=== PATIENT | male | born 1980 | race Caucasian/White ===

== ENCOUNTER 2018-11-02 17:20 | Emergency (ER) | payer OTHER ==
[2018-11-02 17:27] VITALS: BP 157/85
--- NOTE | 2018-11-02 18:05 | ED Physician Documentation ---
PD HPI HEENT - Stated complaint Stated Complaint: THROAT SWELLING - Chief complaint Chief Complaint: Heent - History obtained from History obtained from: Patient - History of Present Illness Timing - onset: How many days ago (few) Timing - duration: Days (few) Timing - details: Gradual onset, Still present Location: Throat. No: Right ear, Left ear, Sinuses, Nose Worsens: Swalllowing Associated symptoms: Fever, Other (tonsil pain and feeling swelling without URI symptoms.). No: Congestion, Rhinorrhea Similar symptoms before: Has not had sx before Recently seen: Clinic (went to Urgent Care on [facility] yesterday and had rapid strep negative and Rx with viscous lido. Feeling worse today.) Review of Systems Constitutional: reports: Fever, Myalgias Nose: denies: Rhinorrhea / runny nose, Congestion Throat: reports: Sore throat Respiratory: denies: Cough GI: denies: Nausea, Vomiting, Diarrhea Musculoskeletal: denies: Joint pain Neurologic: denies: Near syncope PD PAST MEDICAL HISTORY - Past Medical History Cardiovascular: None Respiratory: None Neuro: None Endocrine/Autoimmune: None - Past Surgical History Past Surgical History: Yes - Present Medications Home Medications: Ambulatory Orders Medication Instructions Recorded Confirmed Cephalexin [Keflex] 500 mg PO TID #20 capsule 11/02/18 Hydrocodone/Acetaminophen [[place] 1 each PO Q6H PRN #12 tablet 11/02/18 5-325 Tablet] dexAMETHasone [Decadron] 4 mg PO DAILY #5 tablet 11/02/18 - Allergies Allergies/Adverse Reactions: Allergies Allergy/AdvReac Type Severity Reaction Status Date / Time Penicillins Allergy Unknown Verified 11/02/18 17:26 - Social History Does the pt smoke?: No Smoking Status: Never smoker Does the pt drink ETOH?: Yes ETOH Use: Wine, Beer PD ED PE NORMAL - Vitals Vital signs reviewed: Yes - General General: Alert and oriented X 3, Well developed/nourished, Other (appears in pain with swallowing) - HEENT HEENT: Ears normal, Moist mucous membranes. No: Pharynx benign (tonsils with some swelling and redness but no exudate. No peritonsillar swelling nor redness. ) - Neck Neck: Supple, no meningeal sign, Other (anterior adenopathy, more to the left. ) - Cardiac Cardiac: RRR, No murmur - Respiratory Respiratory: Clear bilaterally - Derm Derm: Normal color, Warm and dry Results - Vitals Vitals: Vital Signs - 24 hr 11/02/18 17:23 Temperature 37.5 C Heart Rate 95 Respiratory 19 Rate Blood Pressure 157/85 H O2 Saturation 100 Oxygen O2 Source Room air PD MEDICAL DECISION MAKING - ED course Complexity details: considered differential (clinically has 3/4 Centor. ), d/w patient Departure - Departure Disposition: Home, Self Care Clinical Impression: Acute pharyngitis Qualifiers: Pharyngitis/tonsillitis etiology: unspecified etiology Qualified Code(s): J02.9 - Acute pharyngitis, unspecified Condition: Stable Record reviewed to determine appropriate education?: Yes Instructions: ED Strep Pharyngitis Poss Prescriptions: Cephalexin [Keflex] 500 mg PO TID #20 capsule dexAMETHasone [Decadron] 4 mg PO DAILY #5 tablet Hydrocodone/Acetaminophen [[place] 5-325 Tablet] 1 each PO Q6H PRN #12 tablet PRN Reason: Pain Comments: Clinically this looks suspicious for bacterial infection though it still could be viral. We can treated empirically with cephalexin antibiotic. Otherwise symptom management with Decadron steroid daily for several days. Continue the lidocaine or could use of Benadryl liquid to help with numbing. Add Tylenol or hydrocodone if needed for pain. Recheck if still not improved over the next several days. Discharge Date/Time: 11/02/18 18:48
[2018-11-02] MEDS ORDERED: LIDOCAINE VISCOUS 2% 15 ML UDC MM STA (18:20)
[2018-11-02] MEDS ORDERED: DEXAMETHASONE 10 MG/ML VIAL PO STA (18:20)
[2018-11-02] MEDS ORDERED: diphenhydrAMINE ELIXIR 25 MG/10 ML UDC PO STA (18:20)
[2018-11-02] MEDS ORDERED: CHERRY SYRUP 10 ML UDC PO ONE (18:20)
[2018-11-02] MEDS ORDERED: cephALEXin 250 MG CAPSULE PO STA (18:21)
[2018-11-02] MEDS: HYDROcod/ACETAM 5/325 MG TABLET PO STA (18:37)
== END 2018-11-02 18:48 | disposition home or self-care (01) ==
LOC: ED 17:20
DX: J02.9 Acute pharyngitis, unspecified (principal)
CPT/HCPCS: 99283; A9270